=== PATIENT | female | born 1990 | race Caucasian/White ===

== ENCOUNTER → 2017-02-12 | Outpatient (CLI) | payer OTHER | LOC: BMCIMAGING 10:35 | PROVIDERS: ATTEND Physician Assistant | DX: S99.921A Unspecified injury of right foot, initial encounter (principal) ==

== ENCOUNTER 2017-05-21 13:11 | Emergency (ER) | payer OTHER ==
[2017-05-21] MEDS ORDERED: LORazepam 2 MG/ML INJ IVP ONE (13:17)
[2017-05-21] MEDS ORDERED: NS 1,000 ML IV ONE (13:17)
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
[2017-05-21 13:45] VITALS: BP 120/93
[2017-05-21] MEDS ORDERED: CYCLOBENZAPRINE 10 MG TAB PO ONE (14:39)
[2017-05-21 15:09] LABS: PLATELET COUNT 380 10^3/uL (150-400)
[2017-05-21] MEDS ORDERED: DIAZEPAM 5 MG TAB PO ONE (15:44)
== END 2017-05-21 16:55 | disposition home or self-care (01) ==
LOC: EDUNIT#
DX: R51 Headache (principal); R06.4 Hyperventilation; E86.9 Volume depletion, unspecified; Z87.891 Personal history of nicotine dependence
CPT/HCPCS: 96374; J2060